=== PATIENT | female | born 1945 | race Caucasian/White ===

== ENCOUNTER 2016-11-16 18:26 | Emergency (ER) | payer MEDICARE, BC ==
[~2016-11-16] VITALS: Ht 152.4 cm; Wt 55.5 kg
[~2016-11-16 18:26] MED LIST: ALBUTEROL0.09 MG/A4 IH; CRANBERRY450 MG PO; DULERA1 ARO IH; LEVOTHROID0.075 MG PO; MICARDIS80 MG PO; SERTRALINE50 MG PO; SYNTHROID0.075 MG/T PO; TYLENOL 8 HR PO; VENTOLIN0.09 MG IH; VITAMIN D1000 IU PO; ZANTAC 7575 MG PO; ZOLOFT 50MG50 MG PO
[2016-11-16 18:28] VITALS: TEMP 97.8
[2016-11-16 19:02] LABS: BASO # 0.1 (0.0-0.2); BASO % 0.8 % (0.0-2.0); EOS # 0.2 (0.0-0.7); EOS % 2.9 % (0-4.0); HEMATOCRIT 40.6 % (37.0-47.0); HEMOGLOBIN 13.7 g/dl (12.5-16.0); LYMPH # 2.2 (1.2-3.4); LYMPH % 27.1 % (20.0-51.0); MEAN CELL VOLUME 91 fl (80.0-100.0); MEAN CORPUSCULAR HEMOGLOBIN 31 pg (27.0-31.0); MEAN CORPUSCULAR HGB CONC 34 g/dl (33.0-37.0); MONO # 0.6 (0.1-0.6); MONO % 7.7 % (1.7-9.3); PLATELET COUNT 228 K/mm3 (130-400); RED BLOOD COUNT 4.46 M/mm3 (4.10-5.30); REDCELL DISTRIBUTION WIDTH-CV 12.3 % (11.5-14.5); WHITE BLOOD COUNT 8.3 K/mm3 (4.8-10.8)
[2016-11-16 19:13] LABS: ADJUSTED CALCIUM 9.7 mg/dL (8.4-10.2); ALANINE AMINOTRANSFERASE 37 U/L (9-52); ALBUMIN 4.5 gm/dL (3.5-5.0); ALKALINE PHOSPHATASE 108 U/L (50-136); ANION GAP 13 mmol/L (7-16); BILIRUBIN,TOTAL 0.7 mg/dL (0.0-1.0); BLOOD UREA NITROGEN 20 mg/dL (7-17); CALCIUM 10.1 mg/dL (8.4-10.2); CARBON DIOXIDE 27 mmol/L (22-30); CHLORIDE 101 mmol/L (98-107); CREATININE, serum 0.79 mg/dL (0.52-1.25); GLUCOSE 108 mg/dL (74-106); POTASSIUM 4.1 mmol/L (3.4-5.0); SODIUM 140 mmol/L (137-145); TOTAL PROTEIN 7.8 gm/dL (6.4-8.2)
[2016-11-16 19:25] LABS: TROPONIN-I < 0.012 ng/mL (0.000-0.034)
[2016-11-16 19:42] VITALS: BP 138/84; PULSE 60
== END 2016-11-16 19:50 | disposition home or self-care (01) ==
LOC: COL.ER 18:26
PROVIDERS: Family Medicine
DX: I10 Essential (primary) hypertension (principal); R42 Dizziness and giddiness; R53.1 Weakness; J45.909 Unspecified asthma, uncomplicated

== ENCOUNTER → 2016-12-27 | Outpatient (CLI) | payer MEDICARE, BC | LOC: COL.RAD 10:11 | DX: M25.552 Pain in left hip (principal) | CPT/HCPCS: J3301; Q9967 ==

== ENCOUNTER → 2017-01-24 | Outpatient (CLI) | payer MEDICARE, BC | LOC: MC.RAD 07:40 | DX: Z12.31 Encounter for screening mammogram for malignant neoplasm of breast (principal) ==

== ENCOUNTER 2017-09-03 23:25 | Emergency (ER) | payer MEDICARE, BC ==
[~2017-09-03] VITALS: Ht 154.9 cm; Wt 54.5 kg
[2017-09-03 23:27] VITALS: TEMP 98
[2017-09-03] MEDS ORDERED: DIOVAN 160MG160 MG PO (23:40)
[2017-09-03 23:58] LABS: BASO # 0.1 (0.0-0.2); BASO % 0.6 % (0.0-2.0); EOS # 0.3 (0.0-0.7); EOS % 3.2 % (0-4.0); GRAN # 4.4 (1.4-6.5); GRAN % 56.5 % (42.2-75.2); HEMATOCRIT 43.1 % (37.0-47.0); HEMOGLOBIN 14.4 g/dl (12.5-16.0); LYMPH # 2.4 (1.2-3.4); LYMPH % 30.5 % (20.0-51.0); MEAN CELL VOLUME 93 fl (80.0-100.0); MEAN CORPUSCULAR HEMOGLOBIN 31 pg (27.0-31.0); MEAN CORPUSCULAR HGB CONC 33 g/dl (33.0-37.0); MONO # 0.7 (0.1-0.6); MONO % 8.9 % (1.7-9.3); PLATELET COUNT 223 K/mm3 (130-400); RED BLOOD COUNT 4.64 M/mm3 (4.10-5.30); WHITE BLOOD COUNT 7.7 K/mm3 (4.8-10.8)
[2017-09-04 00:05] LABS: INR 0.9 (0.8-3.0); PROTHROMBIN TIME 10.6 SECONDS (9.7-12.8)
[2017-09-04 00:07] LABS: PARTIAL THROMBOPLASTIN TIME 32.2 SECONDS (26.0-37.0)
[2017-09-04 00:14] LABS: ADJUSTED CALCIUM 9.1 mg/dL (8.4-10.2); ALANINE AMINOTRANSFERASE 39 U/L (9-52); ALBUMIN 4.7 gm/dL (3.5-5.0); ALKALINE PHOSPHATASE 110 U/L (50-136); ANION GAP 9 mmol/L (7-16); BILIRUBIN,TOTAL 0.5 mg/dL (0.0-1.0); BLOOD UREA NITROGEN 17 mg/dL (7-17); CALCIUM 9.7 mg/dL (8.4-10.2); CARBON DIOXIDE 27 mmol/L (22-30); CHLORIDE 102 mmol/L (98-107); CREATININE, serum 0.79 mg/dL (0.52-1.25); GLUCOSE 119 mg/dL (74-106); SODIUM 138 mmol/L (137-145); TOTAL PROTEIN 7.7 gm/dL (6.4-8.2)
[2017-09-04 00:25] LABS: TROPONIN-I < 0.012 ng/mL (0.000-0.034)
[2017-09-04 02:53] VITALS: BP 118/61; PULSE 58
== END 2017-09-04 02:54 | disposition home or self-care (01) ==
LOC: COL.ER 23:25
PROVIDERS: Emergency Medicine
DX: I10 Essential (primary) hypertension (principal); J45.909 Unspecified asthma, uncomplicated; E03.9 Hypothyroidism, unspecified; Z90.710 Acquired absence of both cervix and uterus; Z98.84 Bariatric surgery status; Z98.41 Cataract extraction status, right eye; Z98.42 Cataract extraction status, left eye

== ENCOUNTER → 2017-09-14 | Outpatient (CLI) | payer MEDICARE, BC ==
[~2017-09-14] VITALS: Ht 154.9 cm; Wt 56.8 kg
[~2017-09-14] MED LIST changes: +DIOVAN 160MG160 MG PO; +VITAMIN D 1001000 IU PO; -VITAMIN D1000 IU PO
[2017-09-14 06:32] VITALS: BP 115/69; PULSE 63
[2017-09-14 07:50] VITALS: BP 157/84; PULSE 92
[2017-09-14 07:51] VITALS: BP 157/84; PULSE 95
[2017-09-14 07:52] VITALS: BP 164/86; PULSE 97
[2017-09-14 07:53] VITALS: BP 178/92; PULSE 94
== END ==
LOC: COL.CARD 06:10
DX: I10 Essential (primary) hypertension (principal)
CPT/HCPCS: A9502; J2785

== ENCOUNTER 2018-01-24 19:22 | Emergency (ER) | payer MEDICARE, BC ==
[~2018-01-24] VITALS: Ht 154.9 cm; Wt 57.4 kg
[2018-01-24 19:30] VITALS: BP 168/79; TEMP 98
[2018-01-24] MEDS ORDERED: ICAPS TABLET1 EACH PO (19:54)
[2018-01-24 21:11] VITALS: PULSE 68
== END 2018-01-24 21:14 | disposition home or self-care (01) ==
LOC: COL.ER 19:22
DX: S51.011A Laceration without foreign body of right elbow, initial encounter (principal); J45.909 Unspecified asthma, uncomplicated; Z23 Encounter for immunization; W26.8XXA Contact with other sharp object(s), not elsewhere classified, initial encounter; Y92.009 Unspecified place in unspecified non-institutional (private) residence as the place of occurrence of the external cause

== ENCOUNTER → 2018-05-01 | Outpatient (CLI) | payer MEDICARE, BC ==
[~2018-05-01] MED LIST changes: +ICAPS TABLET1 EACH PO
== END ==
LOC: MC.RAD 08:00
DX: Z12.31 Encounter for screening mammogram for malignant neoplasm of breast (principal)

== ENCOUNTER → 2018-11-25 | Outpatient (CLI) | payer MEDICARE, BC | LOC: COL.RAD 07:16 | DX: R10.31 Right lower quadrant pain (principal); Z90.710 Acquired absence of both cervix and uterus | CPT/HCPCS: Q9967 ==

== ENCOUNTER → 2018-12-11 | Outpatient (CLI) | payer MEDICARE, BC | LOC: COL.RAD 09:24 | DX: M25.552 Pain in left hip (principal) | CPT/HCPCS: J3301; Q9967 ==

== ENCOUNTER → 2019-05-06 | Outpatient (CLI) | payer MEDICARE, BC | LOC: COL.RAD 08:32 | DX: M47.26 Other spondylosis with radiculopathy, lumbar region (principal); R15.9 Full incontinence of feces; M96.1 Postlaminectomy syndrome, not elsewhere classified; M79.89 Other specified soft tissue disorders | CPT/HCPCS: A9585 ==

== ENCOUNTER → 2019-06-16 | Outpatient (CLI) | payer MEDICARE, BC | LOC: MHCPAIN 09:38 | DX: G89.29 Other chronic pain (principal); M47.817 Spondylosis without myelopathy or radiculopathy, lumbosacral region; M54.16 Radiculopathy, lumbar region; M53.3 Sacrococcygeal disorders, not elsewhere classified; M96.1 Postlaminectomy syndrome, not elsewhere classified | CPT/HCPCS: G0463 ==

== ENCOUNTER → 2019-06-18 | Outpatient (CLI) | payer MEDICARE, BC | LOC: MHCPAIN 09:11 | DX: M79.18 Myalgia, other site (principal) | CPT/HCPCS: J1040 ==

== ENCOUNTER → 2019-07-22 | Outpatient (CLI) | payer MEDICARE, BC | LOC: MHCPAIN 12:17 | DX: G89.29 Other chronic pain (principal); M47.817 Spondylosis without myelopathy or radiculopathy, lumbosacral region; M54.16 Radiculopathy, lumbar region; M53.3 Sacrococcygeal disorders, not elsewhere classified; M96.1 Postlaminectomy syndrome, not elsewhere classified | CPT/HCPCS: G0463 ==

== ENCOUNTER 2019-09-08 13:45 | Outpatient (RCR) | payer MEDICARE, BC | END 2019-09-15 16:29 | disposition home or self-care (01) | LOC: WSC 13:45 | DX: M96.1 Postlaminectomy syndrome, not elsewhere classified (principal); M53.3 Sacrococcygeal disorders, not elsewhere classified; G57.00 Lesion of sciatic nerve, unspecified lower limb ==

== ENCOUNTER → 2020-02-24 | Outpatient (CLI) | payer MEDICARE, BC | LOC: MHCPAIN 09:32 | DX: M47.817 Spondylosis without myelopathy or radiculopathy, lumbosacral region (principal); M54.5 Low back pain; M96.1 Postlaminectomy syndrome, not elsewhere classified; M53.3 Sacrococcygeal disorders, not elsewhere classified; M54.16 Radiculopathy, lumbar region | CPT/HCPCS: G0463 ==

== ENCOUNTER → 2020-03-03 | Outpatient (CLI) | payer MEDICARE, BC | LOC: MHCPAIN 15:02 | DX: G57.02 Lesion of sciatic nerve, left lower limb (principal); M53.3 Sacrococcygeal disorders, not elsewhere classified | CPT/HCPCS: J1040 ==

== ENCOUNTER 2020-04-09 13:00 | Outpatient (RCR) | payer MEDICARE, BC | END 2020-04-20 10:45 | disposition home or self-care (01) | LOC: WSC 13:00 | DX: G57.02 Lesion of sciatic nerve, left lower limb (principal); M96.1 Postlaminectomy syndrome, not elsewhere classified; G89.29 Other chronic pain ==

== ENCOUNTER → 2020-07-12 | Outpatient (CLI) | payer MEDICARE, BC | LOC: MC.RAD 13:23 | DX: Z12.31 Encounter for screening mammogram for malignant neoplasm of breast (principal) ==

== ENCOUNTER → 2020-07-16 | Outpatient (CLI) | payer MEDICARE, BC | LOC: MC.RAD 07:00 | DX: N64.89 Other specified disorders of breast (principal) ==